=== PATIENT | female | born 1965 | race Caucasian/White ===

== ENCOUNTER → 2016-12-12 | Outpatient (CLI) | payer OTHER ==
[~2016-12-12] MED LIST: ASPIRIN 32325 MG/TAB PO; COLACE 100100 MG/CAP PO; HCTZ 25MG TAB25 MG PO; KLONOPIN 1MG1 MG PO; MULTIPLE VITAMI1 CAP PO; NORCO 325 MG-7.1 TAB PO; OSTEO-BI-FLEX 21 TAB PO; ULTRAM 50MG TAB50 MG PO; ZOLOFT 100MG100 MG PO; ZYRTEC5 MG PO
== END ==
LOC: MC.RAD 08:00
DX: Z12.31 Encounter for screening mammogram for malignant neoplasm of breast (principal)

== ENCOUNTER 2017-02-22 09:11 | Inpatient (IN) | payer OTHER ==
[~2017-02-22] VITALS: Ht 162.6 cm; Wt 135.2 kg
[2017-02-22 10:51] VITALS: BP 126/75; PULSE 92; TEMP 98.7
[2017-02-22] MEDS ORDERED: NORCO 325 MG-7.1 TAB PO (11:24)
[2017-02-22] MEDS ORDERED: ULTRAM 50MG TAB50 MG PO (11:24)
[2017-02-22] MEDS ORDERED: KLONOPIN 1MG1 MG PO (11:25)
[2017-02-22] MEDS ORDERED: ZOLOFT 100MG100 MG PO (11:26)
[2017-02-22] MEDS ORDERED: ASPIRIN 32325 MG/TAB PO (11:26)
[2017-02-22] MEDS ORDERED: HCTZ 25MG TAB25 MG PO (11:26)
[2017-02-22] MEDS ORDERED: OSTEO-BI-FLEX 21 TAB PO (11:27)
[2017-02-22] MEDS ORDERED: MULTIPLE VITAMI1 CAP PO (11:27)
[2017-02-22] MEDS ORDERED: COLACE 100100 MG/CAP PO (11:27)
[2017-02-22] MEDS ORDERED: ZYRTEC5 MG PO (11:28)
[2017-02-22 12:38] LABS: HEMATOCRIT 41.6 % (37.0-47.0); HEMOGLOBIN 13.7 g/dl (12.5-16.0); MEAN CELL VOLUME 94 fl (80.0-100.0); MEAN CORPUSCULAR HEMOGLOBIN 31 pg (27.0-31.0); MEAN CORPUSCULAR HGB CONC 33 g/dl (33.0-37.0); MEAN PLATELET VOLUME 11.8 fl (7.4-10.4); PLATELET COUNT 253 K/mm3 (130-400); RED BLOOD COUNT 4.43 M/mm3 (4.10-5.30); REDCELL DISTRIBUTION WIDTH-CV 14.7 % (11.5-14.5); WHITE BLOOD COUNT 15.9 K/mm3 (4.8-10.8)
[2017-02-22 12:49] LABS: PROTHROMBIN TIME 11.5 SECONDS (9.7-12.8)
[2017-02-22 12:53] LABS: ADJUSTED CALCIUM 9.4 mg/dL (8.4-10.2); BILIRUBIN,TOTAL 0.6 mg/dL (0.0-1.0); CALCIUM 9.4 mg/dL (8.4-10.2); CREATININE, serum 0.46 mg/dL (0.52-1.25); POTASSIUM 3.6 mmol/L (3.4-5.0); TOTAL PROTEIN 7.2 gm/dL (6.4-8.2)
[2017-02-22 13:25] LABS: PH 7 (5-8); URINE APPEARANCE Clear; URINE BACTERIA None Seen /hpf; URINE BILIRUBIN Negative (NEGATIVE); URINE BLOOD 1+ (NEGATIVE); URINE COLOR Yellow; URINE GLUCOSE Negative (NEGATIVE); URINE KETONE Negative (NEGATIVE); URINE UROBILINOGEN Negative (NEGATIVE); URINE WBC None Seen /hpf
[2017-02-22 14:07] VITALS: BP 140/75; PULSE 90; TEMP 99.6
[2017-02-22 17:59] VITALS: BP 127/54; PULSE 100; TEMP 98.6
[2017-02-22 22:13] VITALS: BP 127/70; PULSE 108; TEMP 99.4
[2017-02-23] VITALS (13 sets, daily range): BP systolic 109–144; BP diastolic 59–77; PULSE 82–107; TEMP 98–99.3
[2017-02-23 07:54] LABS: BASO % 0.3 % (0.0-2.0); EOS # 0.2 (0.0-0.7); EOS % 1.4 % (0-4.0); GRAN # 7.5 (1.4-6.5); GRAN % 70.5 % (42.2-75.2); HEMATOCRIT 37.3 % (37.0-47.0); HEMOGLOBIN 12.1 g/dl (12.5-16.0); LYMPH # 1.9 (1.2-3.4); LYMPH % 18.2 % (20.0-51.0); MEAN CELL VOLUME 95 fl (80.0-100.0); MEAN CORPUSCULAR HEMOGLOBIN 31 pg (27.0-31.0); MEAN CORPUSCULAR HGB CONC 32 g/dl (33.0-37.0); MEAN PLATELET VOLUME 12.2 fl (7.4-10.4); MONO % 9.1 % (1.7-9.3); PLATELET COUNT 205 K/mm3 (130-400); RED BLOOD COUNT 3.93 M/mm3 (4.10-5.30); WHITE BLOOD COUNT 10.6 K/mm3 (4.8-10.8)
[2017-02-24 03:19] VITALS: BP 122/66; PULSE 95; TEMP 98.4
[2017-02-24 05:30] VITALS: BP 127/63; PULSE 91; TEMP 98.1
[2017-02-24 07:02] LABS: HEMATOCRIT 33.8 % (37.0-47.0); HEMOGLOBIN 10.9 g/dl (12.5-16.0)
[2017-02-24 09:20] VITALS: BP 114/64; PULSE 92; TEMP 98.1
[2017-02-24 13:38] VITALS: BP 118/51; PULSE 98; TEMP 98.3
[2017-02-24 17:45] VITALS: BP 115/48; PULSE 94; TEMP 98.1
[2017-02-24 21:30] VITALS: BP 124/72; PULSE 104; TEMP 98.8
[2017-02-25 05:54] VITALS: BP 112/66; PULSE 105; TEMP 97.9
[2017-02-25 06:57] LABS: HEMATOCRIT 32.6 % (37.0-47.0); HEMOGLOBIN 10.8 g/dl (12.5-16.0)
[2017-02-25 10:45] VITALS: BP 126/69; PULSE 105; TEMP 98.5
[2017-02-25 10:54] VITALS: BP 126/69; PULSE 105; TEMP 98.5
== END 2017-02-25 13:30 | disposition swing bed (61) | DRG 481 ==
LOC: SURG 09:11
PROVIDERS: Orthopaedic Surgery; Physician Assistant
PROC: 0QSC04Z Reposition Left Lower Femur with Internal Fixation Device, Open Approach (ICD-10-PCS; principal; 2017-02-23 15:00)
DX: S72.402A Unspecified fracture of lower end of left femur, initial encounter for closed fracture (principal); M97.02XA Periprosthetic fracture around internal prosthetic left hip joint, initial encounter; Z68.43 Body mass index [BMI] 50.0-59.9, adult; X50.1XXA Overexertion from prolonged static or awkward postures, initial encounter; Z96.652 Presence of left artificial knee joint; I10 Essential (primary) hypertension; E66.01 Morbid (severe) obesity due to excess calories
CPT/HCPCS: 99223; 99232-AI; A9284; C1713; C1776; J0330; J1100; J2270; J2405; J2704; J2710; J3010; J7120

== ENCOUNTER → 2018-01-24 | Outpatient (CLI) | payer OTHER | LOC: MC.RAD 13:54 | DX: Z12.31 Encounter for screening mammogram for malignant neoplasm of breast (principal) ==

== ENCOUNTER → 2021-07-21 | Outpatient (CLI) | payer OTHER | LOC: ZCOL.LAB 15:27 | DX: M71.062 Abscess of bursa, left knee (principal) ==